=== PATIENT | female | born 1955 | race Caucasian/White ===

== ENCOUNTER 2019-06-01 12:20 | Emergency (ER) | payer BC, OTHER ==
[2019-06-01 12:30] VITALS: BP 134/82
--- NOTE | 2019-06-01 13:07 | UC ---
Hand/Wrist HPI - HPI Summary HPI Summary: CLOSED RIGHT MIDDLE FINGER INTO A DOOR A COUPLE OF HOURS [employer]. HAS PAIN, SWELLING AND A SMALL ABRASION. UP-TO-DATE TETANUS. - History Of Current Complaint Chief Complaint: UCUpperExtremity Stated Complaint: FINGER INJURY Time Seen by Provider: 06/01/19 13:00 Hx Obtained From: Patient Onset/Duration: Sudden Onset, Lasting Hours, Still Present Severity Initially: Moderate Severity Currently: Moderate Pain Intensity: 10 Pain Scale Used: 0-10 Numeric Character Of Pain: Sharp Aggravating Factor(s): Movement Alleviating Factor(s): Rest, Ice Associated Signs And Symptoms: Positive: Swelling Related History: Dominant Hand Right - Allergies/Home Medications Allergies/Adverse Reactions: Allergies Allergy/AdvReac Type Severity Reaction Status Date / Time MS Sulfa Antibiotics Allergy Hives Verified 06/04/14 17:02 [Sulfa Antibiotics] Sulfa (Sulfonamide Allergy Hives Verified 06/01/19 12:29 Antibiotics) PMH/Surg Hx/FS Hx/Imm Hx Previously Healthy: Yes - Surgical History Surgical History: Yes Surgery Procedure, Year, and Place: ectopic , spinal surgery - Family History Known Family History: Positive: Non-Contributory - Social History Alcohol Use: Rare Substance Use Type: None Smoking Status (MU): Never Smoked Tobacco Review of Systems All Other Systems Reviewed And Are Negative: Yes Constitutional: Positive: Negative Skin: Positive: Other - ABRASION Respiratory: Positive: Negative Cardiovascular: Positive: Negative Gastrointestinal: Positive: Negative Musculoskeletal: Positive: Arthralgia, Decreased ROM, Edema Physical Exam Triage Information Reviewed: Yes Appearance: Well-Appearing, No Pain Distress, Well-Nourished Vital Signs: Initial Vital Signs Temp 97 F 06/01/19 12:26 Pulse 70 06/01/19 12:26 Resp 17 06/01/19 12:26 BP 134/82 06/01/19 12:26 Pulse Ox 100 06/01/19 12:26 Vital Signs Reviewed: Yes Eyes: Positive: Conjunctiva Clear ENT: Positive: Hearing grossly normal Neck: Positive: Supple, Nontender, No Lymphadenopathy Respiratory: Positive: No respiratory distress, No accessory muscle use Cardiovascular: Positive: Pulses Normal Abdomen Description: Positive: Soft Musculoskeletal: Positive: ROM Limited @ - RIGHT 3RD FINGER, Edema @ - RIGHT 3RD FINGER, Other: - TTP RIGHT 3RD FINGER PIP AND MIDDLE PHALANX Neurological: Positive: Alert Psychological: Positive: Age Appropriate Behavior Skin: Positive: Other - SMALL ABRASION DORSAL RIGHT 3RD FINGER OVERLYING MIDDLE PHALANX Diagnostics - Radiology RIGHT 3RD FINGER XRAYS Radiology Interpretation Completed By: Radiologist Summary of Radiographic Findings: NO ACUTE OSSEOUS INJURY Hand/Wrist Course/Dx - Course Course Of Treatment: X-RAY UNREMARKABLE. FINGER SPLINT APPLIED BY RN. ADVISED PATIENT TO ENSURE SHE HAS FULL RANGE OF MOTION HER PAIN AND SWELLING DECREASE. FOLLOW-UP PCP IF NEEDED. - Differential Dx/Diagnosis Provider Diagnosis: Contusion of right middle finger Discharge ED - Sign-Out/Discharge Documenting (check all that apply): Patient Departure All imaging exams completed and their final reports reviewed: Yes - Discharge Plan Condition: Stable Disposition: HOME Patient Education Materials: Contusion in Adults (ED) Referrals: Bety White NP [Primary Care Provider] - If Needed Additional Instructions: XRAY TODAY NEGATIVE FOR FRACTURE OR DISLOCATION. YOUR SYMPTOMS SHOULD IMPROVE SIGNIFICANTLY OVER THE NEXT 1-2 WEEKS. IF YOU DO NOT IMPROVE EXPECTED FOLLOW- UP WITH YOUR PCP OR ORTHO. YOU MAY BENEFIT FROM REPEAT IMAGING AT THAT TIME. OTC IBUPROFEN OR ALEVE NEEDED FOR DISCOMFORT. REST, ICE, ELEVATE. SPLINT NEEDED FOR SYMPTOM RELIEF. THE SWELLING AND PAIN IMPROVE GO THROUGH FULL FLEXION AND EXTENSION OF YOUR FINGER TO ENSURE YOU HAVE FULL RANGE OF MOTION. - Billing Disposition and Condition Condition: STABLE Disposition: Home
== END 2019-06-01 13:15 | disposition home or self-care (01) ==
LOC: UCEAST 12:20
DX: S60.031A Contusion of right middle finger without damage to nail, initial encounter (principal); W23.0XXA Caught, crushed, jammed, or pinched between moving objects, initial encounter; Y92.9 Unspecified place or not applicable; Z88.2 Allergy status to sulfonamides
CPT/HCPCS: 73140; 99211; G0463